=== PATIENT | female | born 1945 | race Hispanic/Latino ===

== ENCOUNTER 2021-01-13 13:50 | Outpatient (CLI) | payer MEDICARE ==
--- NOTE | 2021-01-13 15:08 | XRay Report ---
PELV[facility] ONE VIEW INDICATION: LEFT HIP PAIN [id number]. COMPARISON: None. IMPRESSION: No acute osseous or soft tissue abnormality. 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 No evidence for osteonecrosis on x-ray. Signer Name: Aldo Sam Jr, MD Signed: 01/13/2021 3:04 PM Workstation Name: [id number]
== END 2021-01-13 13:51 | disposition home or self-care (01) ==
LOC: SPVIMAG 13:50
PROVIDERS: ATTEND Internal Medicine
DX: M16.12 Unilateral primary osteoarthritis, left hip (principal); Z78.0 Asymptomatic menopausal state
CPT/HCPCS: 72170